=== PATIENT | female | born 1965 | race Hispanic/Latino ===

== ENCOUNTER 2017-11-14 18:58 | Emergency (ER) | payer OTHER, MEDICARE ==
[2017-11-14 19:20] LABS: ABSOLUTE BASOPHIL COUNT 0 /CUMM (0.0-0.2); ABSOLUTE EOSINOPHIL COUNT 0.1 /CUMM (0.0-0.7); ABSOLUTE GRANULOCYTE CT 4.3 /CUMM (1.4-6.5); ABSOLUTE LYMPH COUNT 2.4 /CUMM (1.2-3.4); ABSOLUTE MONOCYTE COUNT 0.5 /CUMM (0.10-0.60); BASOPHIL % 0.5 % (0.0-2.0); HEMATOCRIT 40.5 % (37-47); MEAN CORPUSCULAR HGB 30.4 PG (27.0-31.0); MEAN CORPUSCULAR HGB CONC 33.5 G/DL (33.0-37.0); MEAN CORPUSCULAR VOLUME 90.8 FL (81.0-99.0); MEAN PLATELET VOLUME 7.3 FL (7.4-10.4); PLATELET COUNT 262 /CUMM (130-400); RBC DISTRIBUTION WIDTH 12.8 % (11.5-14.5); RED BLOOD CELL CT 4.46 /CUMM (4.20-5.40); WHITE BLOOD CELL COUNT 7.3 /CUMM (4.8-10.8)
--- NOTE | 2017-11-14 20:26 | ED GI/GU/ABDOMINAL COMPLAINT ---
History of Present Illness General Chief Complaint: General Adult Stated Complaint: [facility] FOR [facility]ESIS Source: patient Exam Limitations: no limitations Vital Signs & Intake/Output Vital Signs & Intake/Output Vital Signs Date Time Temp Pulse Resp B/P B/P Pulse O2 O2 Flow FiO2 Mean Ox Delivery Rate 11/14 2237 97.2 62 22 132/80 11/14 2116 98.2 65 16 126/61 99 Room Air 11/14 1906 98.6 76 20 136/88 97 Allergies Coded Allergies: No Known Allergies (11/14/17) Triage Note: PER PT WOKE THIS AM FEELING DIZZY AND VOMITTED X 1 WITH BLOOD IN IT, DENIES PAIN BUT CONT WITH NAUSEA Triage Nurses Notes Reviewed? yes LMP (ages 10-50): post menopausal, unknown ? n Is pt currently ? No Onset: Abrupt Duration: day(s): (1), changing over time, continues in ED Timing: multiple episodes today Quality/Severity: cramping, vomiting Severity Numbers: 6 Location: left flank, left upper quadrant Radiation: no radiation Activities at Onset: none Prior Abdominal Problems: none Past Sexual History: Unobtainable at this time No Modifying Factors: none Modifying Factors: Worsens With: palpation. Associated Symptoms: abdominal pain, nausea/vomiting HPI: 51-year-old female past medical history of peptic ulcer disease presents for evaluation of nausea vomiting abdominal pain. Patient states that symptoms started earlier today with dizziness and nausea. She's had decreased appetite. She states that she had 2 episodes of vomiting. The first time she noticed streaks of blood red blood in the vomit. No coffee-ground emesis no melena no bright red blood per rectum no diarrhea or fevers. No chest pain or shortness of breath. She reports abdominal pain located in the left upper quadrant and left flank. It does not radiate described as cramping. She is not taking any medicine for this. She has a previous history of peptic ulcer disease but currently is not being treated. She has been able to eat and drink some today but it is reduced. Eating does not seem to affect the pain. She currently rates her pain as a 6 out of 10. (Frankie LUCAS,Kenny) Reconcile Medications Atorvastatin Calcium 10 MG TABLET 1 TAB PO DAILY CHOLESTEROL (Reported) Buspirone HCl 15 MG TABLET 1 TAB PO BID MENTAL HEALTH (Reported) Estradiol (Estrace) 0.01 % CREAM.APPL 1 GM VG QWED HRT (Reported) Omeprazole 40 MG CAPSULE.DR 1 CAP PO DAILY gastritis Ondansetron (Zofran Odt) 4 MG TAB.RAPDIS 1 TAB SL TID PRN nausea Paroxetine HCl 20 MG TABLET 1 TAB PO DAILY MENTAL HEALTH (Reported) Sumatriptan Succinate 25 MG TABLET 1 TAB PO AD PRN MIGRAINES (Reported) (Vargas CORNEJO,Amadou Flores) Past History Travel History Traveled to [place] past 21 day No Medical History Any Pertinent Medical History? see below for history Neurological: NONE EENT: NONE Cardiovascular: NONE Respiratory: NONE Gastrointestinal: ?ULCERS Hepatic: NONE Renal: NONE Musculoskeletal: NONE Psychiatric: depression Endocrine: NONE Surgical History Surgical History: non-contributory Psychosocial History What is your primary language [place] Tobacco Use: Never used Family History Hx Contributory? No (Kenny Vu) Review of Systems Review of Systems Constitutional: Reports: no symptoms. EENTM: Reports: no symptoms. Respiratory: Reports: no symptoms. Cardiovascular: Reports: no symptoms. GI: Reports: see HPI, abdominal pain, nausea, vomiting. Genitourinary: Reports: no symptoms. Musculoskeletal: Reports: no symptoms. Skin: Reports: no symptoms. Neurological/Psychological: Reports: no symptoms. Hematologic/Endocrine: Reports: no symptoms. Immunologic/Allergic: Reports: no symptoms. All Other Systems: Reviewed and Negative (Kenny Vu) Physical Exam Physical Exam General Appearance: well developed/nourished, no apparent distress, alert, awake Head: atraumatic, normal appearance Eyes: Bilateral: normal appearance, PERRL, EOMI. Ears, Nose, Throat, Mouth: hearing grossly normal, moist mucous membrane Neck: normal inspection, supple, full range of motion Respiratory: normal breath sounds, chest non-tender, no respiratory distress, lungs clear Cardiovascular: regular rate/rhythm, normal peripheral pulses Peripheral Pulses: 2+ radial (R), 2+ radial (L) Gastrointestinal: normal bowel sounds, soft, no organomegaly, tenderness (luq, left flank ) Rectal: normal inspection, normal rectal tone, heme negative stool Back: normal inspection, normal range of motion, no vertebral tenderness Extremities: normal range of motion Neurologic/Psych: no motor/sensory deficits, awake, alert, oriented x 3, normal gait, normal mood/affect Skin: intact, normal color, warm/dry Core Measures ACS in differential dx? No Sepsis Present: No Sepsis Focused Exam Completed? No (Frankie LUCAS,Kenny) Progress Differential Diagnosis: appendicitis, biliary colic, bowel obstruction, colon cancer, cholecystitis, diverticulitis, esophageal varices, gastritis, pancreatitis, peptic ulcer, PUD/GERD, perforated viscous, SBO Plan of Care: Orders Procedure Date/time Status MISTAKE 11/14 2206 Active URINALYSIS 11/14 2034 Complete Add-on Test (ER Only) 11/14 2007 Active Add-on Test (ER Only) 11/14 2006 Active EKG 11/14 1924 Active TROPONIN LEVEL 11/14 1911 Complete PARTIAL THROMBOPLASTIN TIME 11/14 1911 Complete PROTHROMBIN TIME 11/14 1911 Complete ETHANOL 11/14 1911 Complete LIPASE 11/14 1909 Complete COMPREHENSIVE METABOLIC PANEL 11/14 1909 Complete CBC WITHOUT DIFFERENTIAL 11/14 1909 Complete AMYLASE 11/14 1909 Complete Current Medications Sig/Emani Start time Last Medication Dose Stop Time Status Admin Ondansetron HCl 4 MG ONCE ONE 11/14 2044 CAN (Zofran) 11/14 2045 Pantoprazole Sodium 40 MG ONCE ONE 11/14 2044 CAN (Protonix) 11/14 2045 Sodium Chloride 1,000 ML BOLUS ONE 11/14 2044 CAN (Normal Saline 0.9%) 11/14 2143 Laboratory Tests 11/14/172134: Urine Color YEL, Urine Clarity HAZY H, Urine pH 7.0, Ur Specific [place] 1.010, Urine Protein NEG, Urine Ketones NEG, Urine Nitrite NEG, Urine Bilirubin NEG, Urine Urobilinogen 0.2, Ur Leukocyte Esterase SMALL H, Ur Microscopic SEDIMENT EXAMINED, Urine RBC RARE, Urine WBC 1-3 H, Ur Epithelial Cells RARE, Urine Bacteria MANY H, Urine Hemoglobin NEG, Urine Glucose NEG 11/14/171924: APTT Cancelled, Serum Alcohol Cancelled 11/14/171911: Anion Gap 17 H, Estimated GFR > 60, BUN/Creatinine Ratio 17.1, Glucose 118 H, Calcium 10.1, Total Bilirubin 0.5, AST 28, ALT 47, Alkaline Phosphatase 72, Troponin I < 0.01, Total Protein 8.2, Albumin 5.1 H, Globulin 3.1, Albumin/ Globulin Ratio 1.6, Amylase 61, Lipase 127, PT 12.5, INR 1.19, APTT 29, CBC w Diff NO MAN DIFF REQ, RBC 4.46, MCV 90.8, MCH 30.4, RDW 12.8, MPV 7.3 L, Gran % 59.0, Lymphocytes % 32.6, Monocytes % 6.9, Eosinophils % 1.0, Basophils % 0.5, Absolute Granulocytes 4.3, Absolute Lymphocytes 2.4, Absolute Monocytes 0.5, Absolute Eosinophils 0.1, Absolute Basophils 0, PUBS MCHC 33.5, Serum Alcohol < 10.0 Patient seen and evaluated. Vital signs are stable she's nontoxic-appearing. Rectal exam is negative for blood. She does have some left upper quadrant left flank tenderness. We'll check basic blood work and CT scan of the abdomen and pelvis. Patient was given IV fluids and Zofran and GI cocktail. We'll reassess patient. Patient reevaluated after labs and CAT scan back. Blood work is within normal limits. CT scan is negative for any acute findings. Patient is feeling better after gi cocktail and Zofran. sHe is able tolerate fluids. Her abdomen is soft and nontender on reevaluation. She is not orthostatic. Hemoglobin is stable. Urine is showing some thea signs of infection however she is not having any urinary symptoms currently. Patient will be given a prescription for omeprazole. Also Zofran for nausea. Advised to rest and plenty of fluids and avoid spicy foods alcohol and caffeine. Follow-up with GI doctor as soon as possible. Discussed return precautions in detail. Patient is nontoxic- appearing and agrees the plan. Diagnostic Imaging: Viewed by Me: CT Scan. Discussed w/RAD: CT Scan. Radiology Impression: PATIENT: JAE PEREZ PRESENT AGE: 51 PATIENT ACCOUNT NO: [id number] : 63 LOCATION: [facility] ORDERING PHYSICIAN: Kenny LUCAS SERVICE DATE: 11/14/17 EXAM TYPE: CAT - CT ABD & PELVIS W/O IV CONTRAS EXAMINATION: CT ABDOMEN AND PELVIS WITHOUT CONTRAST CLINICAL INFORMATION: Left flank pain. Left upper quadrant pain. History of kidney stones. COMPARISON: None. TECHNIQUE: Multidetector volumetric imaging was performed from the superior aspect of the liver through the pubic symphysis. Sagittal and coronal reformatted images were obtained on the technologist's workstation. FINDINGS: LUNG BASES: Mild bibasilar atelectasis. LIVER, GALLBLADDER, AND BILIARY TREE: The liver is normal in size, shape, and attenuation. No focal hepatic lesion or biliary ductal dilatation is present. The gallbladder is unremarkable with no evidence of radiopaque gallstones, gallbladder wall thickening, or obvious pericholecystic inflammatory changes. PANCREAS: Unremarkable. SPLEEN: Unremarkable. ADRENAL GLANDS: Unremarkable. KIDNEYS AND URETERS: The kidneys are normal in size, shape, and attenuation. No renal calculi seen. No hydronephrosis, hydroureter. The ureters are difficult to follow distally, but no definite calculi in the expected course of the ureters. Small punctate calcification posterior to the left side of the bladder, suspected to be extrinsic to the expected location of the ureter. No perinephric stranding. BLADDER: Unremarkable. GASTROINTESTINAL TRACT: Normal caliber of the small and large bowel loops. No evidence of bowel obstruction. No acute inflammatory changes are seen. The stomach is unremarkable allowing for degree of distention. No free fluid. The appendix contains air, and appears unremarkable. ABDOMINAL WALL: No significant hernia is appreciated. LYMPH NODES: No pathologically enlarged lymph nodes are seen. VASCULAR: Normal caliber aorta. PELVIC VISCERA: Within normal limits. OSSEOUS STRUCTURES: No acute or suspicious osseous abnormalities are seen. IMPRESSION: 1. No evidence for renal or definite ureteral calculi. No evidence of hydronephrosis. 2. No acute findings are identified in the abdomen or pelvis. DICTATED BY: Liban Arana MD DATE/TIME DICTATED:11/14/172131 CERT PHARMACY TECH:KATYA DATE/TIME TRANSCRIBED:2131 CONFIDENTIAL, DO NOT COPY WITHOUT APPROPRIATE AUTHORIZATION. Initial ED EKG: normal sinus rhythm, no ST T wave changes (Kenny Vu) Departure Departure Disposition: HOME OR SELF CARE Condition: Stable Clinical Impression Primary Impression: Gastritis Qualifiers: Gastritis type: unspecified gastritis Chronicity: acute Gastritis bleeding: without bleeding Qualified Code: K29.00 - Acute gastritis without bleeding Referrals: Edward Simpson MD Unknown (PCP/Family) Additional Instructions: Rest and drink plenty of fluids. Tylenol as needed for pain. Zofran for nausea. Omeprazole is an antacid medication that is taken once daily. Avoid greasy fatty spicy foods. Also avoid alcohol and caffeine. Follow-up with provided GI doctor as soon as possible. Monitor symptoms return with any concerns. Departure Forms: Customer Survey General Discharge Information Prescriptions: Current Visit Scripts Omeprazole 1 CAP PO DAILY #30 CAP Ondansetron (Zofran Odt) 1 TAB SL TID PRN nausea #10 TAB (Kenny Vu) PA/MASTER CERTIFIED RV TECHNICIAN Co-Sign Statement Statement: ED Attending supervision documentation- [] I saw and evaluated the patient. I have also reviewed all the pertinent lab results and diagnostic results. I agree with the findings and the plan of care as documented in the PA's/MASTER CERTIFIED RV TECHNICIAN's documentation. x[] I have reviewed the ED Record and agree with the PA's/MASTER CERTIFIED RV TECHNICIAN's documentation. [] Additions or exceptions (if any) to the PAs/MASTER CERTIFIED RV TECHNICIAN's note and plan are summarized below: [] (Vargas CORNEJO,Amadou Flores)
[2017-11-14 20:28] LABS: PT 12.5 SEC (9.4-12.5); PTT 29 SEC (25-37)
--- NOTE | 2017-11-14 22:01 | CT SCAN REPORT ---
EXAMINATION: CT ABDOMEN AND PELVIS WITHOUT CONTRAST CLINICAL INFORMATION: Left flank pain. Left upper quadrant pain. History of kidney stones. COMPARISON: None. TECHNIQUE: Multidetector volumetric imaging was performed from the superior aspect of the liver through the pubic symphysis. Sagittal and coronal reformatted images were obtained on the technologist's workstation. FINDINGS: LUNG BASES: Mild bibasilar atelectasis. LIVER, GALLBLADDER, AND BILIARY TREE: The liver is normal in size, shape, and attenuation. No focal hepatic lesion or biliary ductal dilatation is present. The gallbladder is unremarkable with no evidence of radiopaque gallstones, gallbladder wall thickening, or obvious pericholecystic inflammatory changes. PANCREAS: Unremarkable. SPLEEN: Unremarkable. ADRENAL GLANDS: Unremarkable. KIDNEYS AND URETERS: The kidneys are normal in size, shape, and attenuation. No renal calculi seen. No hydronephrosis, hydroureter. The ureters are difficult to follow distally, but no definite calculi in the expected course of the ureters. Small punctate calcification posterior to the left side of the bladder, suspected to be extrinsic to the expected location of the ureter. No perinephric stranding. BLADDER: Unremarkable. GASTROINTESTINAL TRACT: Normal caliber of the small and large bowel loops. No evidence of bowel obstruction. No acute inflammatory changes are seen. The stomach is unremarkable allowing for degree of distention. No free fluid. The appendix contains air, and appears unremarkable. ABDOMINAL WALL: No significant hernia is appreciated. LYMPH NODES: No pathologically enlarged lymph nodes are seen. VASCULAR: Normal caliber aorta. PELVIC VISCERA: Within normal limits. OSSEOUS STRUCTURES: No acute or suspicious osseous abnormalities are seen. IMPRESSION: 1. No evidence for renal or definite ureteral calculi. No evidence of hydronephrosis. 2. No acute findings are identified in the abdomen or pelvis.
[2017-11-14] MEDS ORDERED: OMEPRAZOLE40 M1 PO (22:29)
[2017-11-14] MEDS ORDERED: ZOFRAN ODT4 M1 SL (22:29)
[2017-11-14] MEDS ORDERED: ATORVASTATIN CA10 M1 PO (22:32)
[2017-11-14] MEDS ORDERED: BUSPIRONE HCL15 M1 PO (22:32)
[2017-11-14] MEDS ORDERED: ESTRACE42.5 GM VG (22:32)
[2017-11-14] MEDS ORDERED: SUMATRIPTAN SUC25 M1 PO (22:32)
[2017-11-14] MEDS ORDERED: PAROXETINE HCL20 M1 PO (22:32)
[2017-11-14 22:38] VITALS: BP 132/80
== END 2017-11-14 22:39 ==
LOC: ERH 18:58
PROVIDERS: Emergency Medicine
DX: K29.70 Gastritis, unspecified, without bleeding (principal)
CPT/HCPCS: 74176; 81001; 93005; 93010; 96360; G0480; J3101